=== PATIENT | male | born 1995 | race Caucasian/White ===

== ENCOUNTER 2016-12-29 18:35 | Emergency (ER) | payer OTHER ==
[~2016-12-29] VITALS: Ht 188 cm; Wt 81.0 kg
[~2016-12-29 18:35] MED LIST: CLONAZEPAM0.5 MG PO
[2016-12-29] MEDS ORDERED: PREDNISONE50 MG PO (19:58)
[2016-12-29 20:31] VITALS: BP 125/74
== END 2016-12-29 20:32 | disposition home or self-care (01) ==
LOC: EME 18:35
DX: M54.16 Radiculopathy, lumbar region (principal)
CPT/HCPCS: 99281; 99284

== ENCOUNTER 2018-02-01 09:48 | Emergency (ER) | payer OTHER ==
[~2018-02-01] VITALS: Ht 190.5 cm; Wt 88.0 kg
[~2018-02-01 09:48] MED LIST changes: +PREDNISONE50 MG PO
[2018-02-01] MEDS ORDERED: FLEXERIL5 MG PO (10:43)
[2018-02-01] MEDS ORDERED: NORCO 5/3251 TABLET PO (10:43)
[2018-02-01 10:51] VITALS: BP 135/87
== END 2018-02-01 10:54 | disposition home or self-care (01) ==
LOC: EME 09:48
DX: M54.16 Radiculopathy, lumbar region (principal)